=== PATIENT | male | born 1990 | race African-American/Black ===

== ENCOUNTER 2023-03-19 16:34 | Emergency (ER) | payer OTHER ==
[2023-03-19] MEDS ORDERED: Ketorolac Tromethamine 30 MG (1 mL) VIAL ONE (17:17)
== END 2023-03-19 17:23 | disposition home or self-care (01) ==
LOC: CSHERS 16:34
DX: K08.89 Other specified disorders of teeth and supporting structures (principal); F17.210 Nicotine dependence, cigarettes, uncomplicated
CPT/HCPCS: 96372; 99282; J1885